=== PATIENT | female | born 1980 | race Caucasian/White ===

== ENCOUNTER 2017-07-30 21:10 | Emergency (ER) | payer MEDICAID ==
[~2017-07-30] VITALS: Ht 139.7 cm; Wt 49.9 kg
[2017-07-30 21:15] VITALS: BP 124/74
== END 2017-07-30 23:06 | disposition home or self-care (01) ==
LOC: ER 21:13
DX: S62.002A Unspecified fracture of navicular [scaphoid] bone of left wrist, initial encounter for closed fracture (principal); V28.4XXA Motorcycle driver injured in noncollision transport accident in traffic accident, initial encounter; Y93.55 Activity, bike riding; Y92.89 Other specified places as the place of occurrence of the external cause; Y99.8 Other external cause status
CPT/HCPCS: 73110; A4606; Z7610

== ENCOUNTER 2017-11-14 12:57 | Emergency (ER) | payer MEDICAID ==
[~2017-11-14] VITALS: Ht 165.1 cm; Wt 56.7 kg
[2017-11-14 13:00] VITALS: BP 116/69
== END 2017-11-14 14:04 | disposition home or self-care (01) ==
LOC: ER 12:58
DX: S50.02XA Contusion of left elbow, initial encounter (principal); S80.02XA Contusion of left knee, initial encounter; V23.4XXA Motorcycle driver injured in collision with car, pick-up truck or van in traffic accident, initial encounter; Y93.55 Activity, bike riding; Y92.413 State road as the place of occurrence of the external cause; Y99.8 Other external cause status
CPT/HCPCS: 99282; A4606; Z7610; Z7502